=== PATIENT | female | born 1950 | race Caucasian/White ===

== ENCOUNTER → 2023-07-27 09:28 | Outpatient (REF) | payer OTHER, SELFPAY | LOC: RCS 09:28 | PROVIDERS: ATTENDING PHYSICIAN Nuclear Medicine Nuclear Cardiology; FAMILY PHYSICIAN Family Medicine | DX: I08.0 Rheumatic disorders of both mitral and aortic valves (principal); R00.2 Palpitations | CPT/HCPCS: 93306 ==